=== PATIENT | male | born 1945 | race Caucasian/White ===

== ENCOUNTER 2018-01-10 11:52 | Emergency (ER) | payer BC, MEDICAID, MEDICARE ==
[2018-01-10 13:07] LABS: BASO % 0.3 % (0.0-2.0); EOS % 0.8 % (0.0-4.0); HEMOGLOBIN 13.9 g/dL (12.0-18.0); LYMPH # 0.8 K/uL (1.0-4.3); LYMPH % 24.6 % (20.0-40.0); MEAN CELL VOLUME 93.9 fl (80.0-94.0); MEAN CORPUSCULAR HEMOGLOBIN 31.8 pg (27.0-31.0); MEAN CORPUSCULAR HGB CONC 33.9 g/dL (33.0-37.0); MEAN PLATELET VOLUME 6.6 fl (7.2-11.7); MONO # 0.3 K/uL (0.0-0.8); MONO % 9.4 % (0.0-10.0); NEUT # 2.2 K/uL (1.8-7.0); NEUT % 64.9 % (50.0-75.0); NRBC % 0.1 % (0.0-0.0); RBC 4.36 Mil/uL (4.40-5.90); RED CELL DISTRIBUTION WIDTH 13.5 % (11.5-14.5); WHITE BLOOD COUNT 3.3 K/uL (4.8-10.8)
[2018-01-10 13:23] LABS: ALB/GLOB RATIO 1.2 (1.0-2.1); ALBUMIN 3.9 g/dL (3.5-5.0); ALT/SGPT 28 U/L (21-72); AST/SGOT 35 U/L (17-59); BLOOD UREA NITROGEN 9 mg/dl (9-20); CALCIUM 9.1 mg/dL (8.4-10.2); GFR AFRICAN-AMERICAN > 60; GFR NON-AFRICAN AMERICAN > 60
--- NOTE | 2018-01-10 15:08 | RAD ---
PROCEDURE: Radiographs of the Lumbar Spine. HISTORY: fall COMPARISON: 08/01/2009 FINDINGS: BONES: Normal alignment. No listhesis. No fracture. DISC SPACES: Unremarkable. OTHER FINDINGS: None. IMPRESSION: Unremarkable radiographs of the lumbar spine.No significant interval change compared to the prior examination(s).
--- NOTE | 2018-01-10 15:09 | RAD ---
PROCEDURE: Pelvis and right hip HISTORY: fall COMPARISON: None TECHNIQUE: Standard protocol for this study/examination. FINDINGS: There are no osseous abnormalities to suggest fracture. The pelvic ring is intact. Preserved femoral-acetabular relationship. Negative study for protrusio, subluxation or dislocation. Degenerative changes: Mild and symmetrical. IMPRESSION: No acute findings related to/accounting for the clinical presentation.
--- NOTE | 2018-01-10 16:07 | ED PDOC ---
HPI: Back Time Seen by Provider: 01/10/18 12:26 Chief Complaint (Nursing): Back Pain Chief Complaint (Provider): back pain History Per: Patient, Sane Rn History/Exam Limitations: no limitations Onset/Duration Of Symptoms: Days (4), Gradual Quality Of Discomfort: Sharp Severity: Mild Previous Symptoms: Back Pain Exacerbating Factor(s): Turning, Movement, Standing Additional Complaint(s): 72yo male c/o Right lower lumbar pain x4-5 days. Per family member drinks daily , had a mild fall about 2 weeks ago but no AMS, no headache, no neck pain. Using OTC analgesics and OTC "pain patch" to area w some relief. Denies fever, urinary symptoms, rash, syncope or SOB. PMD Toure but hasnt been in quite awhile, takes no Rx medications. Past Medical History Reviewed: Historical Data, Nursing Documentation, Vital Signs Vital Signs: Last Vital Signs Temp 98 F 01/10/18 11:58 Pulse 82 01/10/18 11:58 Resp 18 01/10/18 11:58 BP 181/107 H 01/10/18 11:58 Pulse Ox 100 01/10/18 11:58 - Medical History PMH: No Chronic Diseases - Family History Family History: States: Unknown Family Hx - Living Arrangements Living Arrangements: With Family - Social History Current smoker - smoking cessation education provided: No Alcohol: Other (intermittent but frequent drink) - Home Medications Home Medications: Ambulatory Orders Medication Instructions Recorded Ibuprofen [Motrin Tab] 600 mg PO Q6 PRN #15 tab 01/10/18 Lidocaine 5% [Lidoderm] 1 ea TD DAILY PRN #6 patch 01/10/18 - Allergies Allergies/Adverse Reactions: Allergies Allergy/AdvReac Type Severity Reaction Status Date / Time No Known Allergies Allergy Verified 01/10/18 11:58 Review of Systems Constitutional: Negative for: Fever, Chills, Weakness, Malaise, Weight loss Eyes: Negative for: Vision Change ENT: Negative for: Nose Discharge, Throat Pain Cardiovascular: Negative for: Chest Pain Respiratory: Negative for: Cough, Shortness of Breath Gastrointestinal: Negative for: Nausea, Vomiting, Abdominal Pain Genitourinary Male: Negative for: Dysuria, Hematuria Musculoskeletal: Positive for: Back Pain. Negative for: Neck Pain, Shoulder Pain, Arm Pain, Hand Pain Skin: Negative for: Rash, Lesions, Jaundice, Bruising Neurological: Negative for: Weakness, Numbness, Seizures, Headache Physical Exam - Reviewed Nursing Documentation Reviewed: Yes Vital Signs Reviewed: Yes - Physical Exam Appears: Positive for: Well, Non-toxic, No Acute Distress Head Exam: Positive for: ATRAUMATIC, NORMAL INSPECTION, NORMOCEPHALIC Skin: Positive for: Normal Color, Warm, DRY Eye Exam: Positive for: EOMI, Normal appearance, PERRL ENT: Positive for: Normal ENT Inspection Neck: Positive for: Normal, Painless ROM Cardiovascular/Chest: Positive for: Regular Rate, Rhythm Respiratory: Positive for: CNT, Normal Breath Sounds Gastrointestinal/Abdominal: Positive for: Normal Exam, Bowel Sounds, Soft Back: Positive for: Vertebral Tenderness (mild lower lumbar), Decreased ROM, Muscle Spasm Extremity: Positive for: Normal ROM Neurologic/Psych: Positive for: Alert, Oriented - Laboratory Results Result Diagrams: 01/10/18 12:57 01/10/18 12:57 Urine dip results: Positive for: Ketones. Negative for: Leukocyte Esterase, Blood, Nitrate - ECG ECG: Positive for: Interpreted By Me ECG Rhythm: Positive for: Normal QRS, Normal ST Segment, Sinus Rhythm, Nonspecific Changes Rate: 83 O2 Sat by Pulse Oximetry: 100 Pulse Ox Interpretation: Normal - Radiology X-Ray: Read By Radiologist (neg for fractures) Medical Decision Making Medical Decision Making: workup w labs, XRays, and analgesics initiated UDip no signs infection, no hematuria XRay reports reviewed labs reviewed and mild leukopenia diff normal, likely etoh related etoh neg given toradol w some improvement Rx motrin and lioderm, followup Dr Toure for BP check, avoid alcohol fall precautions discussed w family member Disposition - Clinical Impression Clinical Impression: Back pain - Patient ED Disposition Is Patient to be Admitted: No Counseled Patient/Family Regarding: Studies Performed, Diagnosis, Need For Followup, Rx Given - Disposition Referrals: Hemant Toure MD [Family Provider] - Disposition: Routine/Home Disposition Time: 16:01 Condition: STABLE Additional Instructions: Followup with PMD in 2-3 days. Return to ER for any worse or new symptoms. Take medications as directed. Prescriptions: Ibuprofen [Motrin Tab] 600 mg PO Q6 PRN #15 tab PRN Reason: Pain, Moderate (4-7) Lidocaine 5% [Lidoderm] 1 ea TD DAILY PRN #6 patch PRN Reason: Pain, Severe (8-10) Instructions: Low Back Pain (DC) Forms: [facility] (Ecuadorean) Print Language: GREENLANDIC
[2018-01-10 16:25] VITALS: BP 120/70; PULSE 78; RESP 20; TEMP 98.3; O2SAT 98
--- NOTE | 2018-01-11 08:29 | CARD ---
APPROVED REPORT EKG Measurement Heart [id number] <Conclusion> Normal sinus rhythm Normal ECG
== END 2018-01-10 16:26 | disposition home or self-care (01) ==
LOC: H.ER 11:52
DX: M54.5 Low back pain (principal)
CPT/HCPCS: 72114; 73502; 80053; 82550; 85025; 93005; 96374; 99283; G0480; J1885

== ENCOUNTER 2018-06-16 22:18 | Emergency (ER) | payer MEDICARE ==
[2018-06-16 22:25] VITALS: RESP 16; TEMP 98.1
--- NOTE | 2018-06-16 23:50 | ED PDOC ---
HPI: Psych/Substance Abuse Time Seen by Provider: 06/16/18 22:56 Chief Complaint (Nursing): Altered Mental Status Chief Complaint (Provider): Elopement ED Caveat: Intoxicated History Per: Patient, Family (daughter) History/Exam Limitations: no limitations Onset/Duration Of Symptoms: Hrs ([employer] WORK[employer]) Current Symptoms Are (Timing): Still Present Additional Complaint(s): 72 year old male with a history of seizures, dementia, ETOH abuse and cannabis abuse presents to the ED for elopement. As per daughter, patient left family home, was not locatable but found [place] later [place]. At the time, he was found undressing and under the influence. Prompting daughter to bring patient to the hospital for further evaluation. Daughter states patient has acted similarly in the past. He is prescribed medication for seizures but is noncompliant. Patient denies medical complaints. PMD: Dr. Toure Past Medical History Reviewed: Historical Data, Nursing Documentation, Vital Signs Vital Signs: Last Vital Signs Temp 98.1 F 06/16/18 22:24 Pulse 79 06/16/18 22:24 Resp 16 06/16/18 22:24 BP 144/80 06/16/18 22:24 Pulse Ox 97 06/16/18 22:24 - Medical History PMH: Dementia, Seizures - Family History Family History: States: Unknown Family Hx - Social History Alcohol: Other (yes, known etoh abuse) Drugs: Cannabis - Immunization History Hx Tetanus Toxoid Vaccination: No Hx Influenza Vaccination: No Hx Pneumococcal Vaccination: No - Home Medications Home Medications: Ambulatory Orders Medication Instructions Recorded Ibuprofen [Motrin Tab] 600 mg PO Q6 PRN #15 tab 01/10/18 Lidocaine 5% [Lidoderm] 1 ea TD DAILY PRN #6 patch 01/10/18 - Allergies Allergies/Adverse Reactions: Allergies Allergy/AdvReac Type Severity Reaction Status Date / Time No Known Allergies Allergy Verified 06/16/18 22:24 Review of Systems ROS Statement: Except As Marked, All Systems Reviewed And Found Negative Neurological: Positive for: Altered Mental Status Physical Exam - Reviewed Nursing Documentation Reviewed: Yes Vital Signs Reviewed: Yes - Physical Exam Appears: Positive for: Non-toxic, No Acute Distress Head Exam: Positive for: ATRAUMATIC, NORMOCEPHALIC Skin: Positive for: Normal Color, Warm, Dry Eye Exam: Positive for: EOMI, Normal appearance, PERRL Neck: Positive for: Normal, Painless ROM Cardiovascular/Chest: Positive for: Regular Rate, Rhythm. Negative for: Murmur Respiratory: Positive for: Normal Breath Sounds. Negative for: Respiratory Distress Gastrointestinal/Abdominal: Positive for: Normal Exam, Soft. Negative for: Tenderness Extremity: Positive for: Normal ROM (upper and lower) Neurologic/Psych: Positive for: Alert, Oriented - Laboratory Results Result Diagrams: 06/16/18 23:58 06/16/18 23:58 - ECG O2 Sat by Pulse Oximetry: 97 (RA) Pulse Ox Interpretation: Normal Medical Decision Making Medical Decision Making: Time: 23:04 Initial Impression: 72 year old male with intoxication and known dementia Initial Plan: --Alcohol serum --[employer] OPERATOR --Urine drug screen --Urine dip --CBC with differentials --Accucheck --Urinalysis Time: 00:50 --Labs review, show no clinically significant abnormalities with the exception of elevated alcohol levels. Patient is stable for discharge home. Diagnosis alcohol intoxication. Scribe Attestation: Documented by Thania Barajas, acting as a scribe for Prince Leary MD Provider Scribe Attestation: All medical record entries made by the Scribe were at my direction and personally dictated by me. I have reviewed the chart and agree that the record accurately reflects my personal performance of the history, physical exam, medical decision making, and the department course for this patient. I have also personally directed, reviewed, and agree with the discharge instructions and disposition.a Disposition - Clinical Impression Clinical Impression: Alcohol intoxication - Disposition Disposition Time: 00:50 Condition: STABLE Instructions: Alcohol Abuse and Alcoholism (DC) Forms: [employer] [facility] (Greenlandic) Print Language: ESTONIAN
[2018-06-16 23:55] LABS: URINE BILIRUBIN NEGATIVE (NEGATIVE); URINE BLOOD NEGATIVE (NEGATIVE); URINE CLARITY CLEAR (Clear); URINE COLOR COLORLESS (YELLOW); URINE GLUCOSE (UA) NEG (Normal); URINE LEUKOCYTE ESTERASE NEG Leu/uL (Negative); URINE PROTEIN NEGATIVE (NEGATIVE); URINE UROBILINOGEN 0.2-1.0 mg/dL (0.2-1.0)
[2018-06-17 00:11] LABS: BARBITURATES, UR NEGATIVE (NEGATIVE); BENZODIAZEPINES, UR NEGATIVE (NEGATIVE); OPIATES, UR NEGATIVE (NEGATIVE); PHENCYCLIDINE, UR NEGATIVE (NEGATIVE)
[2018-06-17 00:20] LABS: BASO % 0.9 % (0.0-2.0); EOS # 0.1 K/uL (0.0-0.7); EOS % 2.7 % (0.0-4.0); HEMOGLOBIN 13.6 g/dL (12.0-18.0); LYMPH # 1.8 K/uL (1.0-4.3); LYMPH % 50.6 % (20.0-40.0); MEAN CELL VOLUME 94.2 fl (80.0-94.0); MEAN CORPUSCULAR HEMOGLOBIN 32.1 pg (27.0-31.0); MEAN CORPUSCULAR HGB CONC 34.1 g/dL (33.0-37.0); MEAN PLATELET VOLUME 6.5 fl (7.2-11.7); MONO # 0.3 K/uL (0.0-0.8); MONO % 8.1 % (0.0-10.0); NEUT # 1.3 K/uL (1.8-7.0); NEUT % 37.7 % (50.0-75.0); NRBC % 0.1 % (0.0-0.0); RBC 4.22 Mil/uL (4.40-5.90); RED CELL DISTRIBUTION WIDTH 13.2 % (11.5-14.5); WHITE BLOOD COUNT 3.5 K/uL (4.8-10.8)
[2018-06-17 00:26] LABS: ALB/GLOB RATIO 1.5 (1.0-2.1); ALBUMIN 4.5 g/dL (3.5-5.0); ALT/SGPT 28 U/L (21-72); AST/SGOT 36 U/L (17-59); BLOOD UREA NITROGEN 7 mg/dl (9-20); CALCIUM 9.2 mg/dL (8.4-10.2); GFR AFRICAN-AMERICAN > 60; GFR NON-AFRICAN AMERICAN > 60
[2018-06-17 01:01] VITALS: BP 140/90; PULSE 80; O2SAT 96
== END 2018-06-17 01:00 | disposition home or self-care (01) ==
LOC: H.ER 22:18
DX: F10.129 Alcohol abuse with intoxication, unspecified (principal); F03.90 Unspecified dementia, unspecified severity, without behavioral disturbance, psychotic disturbance, mood disturbance, and anxiety; G40.909 Epilepsy, unspecified, not intractable, without status epilepticus; F12.10 Cannabis abuse, uncomplicated; Z91.19 Patient's noncompliance with other medical treatment and regimen
CPT/HCPCS: 80053; 81003; 82948; 85025; 99285; G0480